=== PATIENT | male | born 1955 ===

== ENCOUNTER 2019-02-01 11:37 | Inpatient (IN) | payer OTHER ==
[~2019-02-01] VITALS: Ht 193 cm; Wt 122.5 kg
[2019-02-01] MEDS ORDERED: AMLODIPINE BESYL5 MG (12:15)
[2019-02-01] MEDS ORDERED: CONCOR (12:16)
== END 2019-02-10 10:34 | disposition designated cancer center or children's hospital (05) | DRG 388 ==
LOC: ER 11:37 → ICU-2 18:35 → ICU 18:35
PROVIDERS: ADMIT Internal Medicine
PROC: 3E0F7GC Introduction of Other Therapeutic Substance into Respiratory Tract, Via Natural or Artificial Opening (ICD-10-PCS; principal; 2019-02-02)
PROC: BW21ZZZ Computerized Tomography (CT Scan) of Abdomen and Pelvis (ICD-10-PCS; 2019-02-02)
DX: K56.51 Intestinal adhesions [bands], with partial obstruction (principal); E11.01 Type 2 diabetes mellitus with hyperosmolarity with coma; N17.8 Other acute kidney failure; N39.0 Urinary tract infection, site not specified; A08.8 Other specified intestinal infections; R09.02 Hypoxemia; E86.0 Dehydration; D72.828 Other elevated white blood cell count; E87.6 Hypokalemia; I10 Essential (primary) hypertension; F43.22 Adjustment disorder with anxiety; K57.30 Diverticulosis of large intestine without perforation or abscess without bleeding; G47.33 Obstructive sleep apnea (adult) (pediatric); E66.8 Other obesity; F17.210 Nicotine dependence, cigarettes, uncomplicated; J44.9 Chronic obstructive pulmonary disease, unspecified; Z92.21 Personal history of antineoplastic chemotherapy; Z85.038 Personal history of other malignant neoplasm of large intestine; Z99.81 Dependence on supplemental oxygen; Z91.19 Patient's noncompliance with other medical treatment and regimen; Z79.4 Long term (current) use of insulin